=== PATIENT | male | born 1965 | race Caucasian/White ===

== ENCOUNTER 2019-01-17 10:05 | Day surgery (SDC) | payer OTHER ==
[~2019-01-17] VITALS: Ht 167.6 cm; Wt 93.4 kg
[~2019-01-17 10:05] MED LIST: BUPIVACAINE HCL 0.25% 30 ML VIAL As Ordered ONE; BUPIVACAINE LIPOSOME/PF 1.3% 20ML VIAL (13.3MG/ML)(EXPAREL)(C9290 PER1MG) As Ordered ONE; CLAR1TAB13 PO; CYMB60CA3 PO; KETOROLAC 60 MG/2 ML VIAL (J1885) As Ordered ONE; LIDOCAINE 2% INJ 100 MG/5 ML SDV (FOR ANES.) As Ordered ONE; LR 1,000 ML IV ONE; MIDAZOLAM INJ 2 MG/2 ML VIAL (J2250) As Ordered ONE; MODA200T15 PO; MULT1TAB11 PO; NEXI20CA PO; ONDANSETRON 4MG/2ML VIAL (J2405) As Ordered ONE; PEPC1TAB5 PO; PROPOFOL 200 MG/20 ML VIAL As Ordered ONE; ROCURONIUM BROMIDE 50 MG/5 ML VIAL As Ordered ONE; ZYRTTAB8 PO; ceFAZolin SOD 1 GM in D5W MINI-BAG PLUS 50 ML IV ONE; dexameTHASONE 4 MG/ML 1ML VIAL (J1100) As Ordered ONE; fentaNYL 100 MCG/2 ML INJECTION (J3010) As Ordered ONE
[2019-01-17] MEDS ORDERED: BUPIVACAINE HCL 0.25% 30 ML VIAL As Ordered ONE (11:33)
[2019-01-17] MEDS ORDERED: BUPIVACAINE LIPOSOME/PF 1.3% 20ML VIAL (13.3MG/ML)(EXPAREL)(C9290 PER1MG) As Ordered ONE (11:33)
[2019-01-17] MEDS ORDERED: METOCLOPRAMIDE INJ 10MG/2ML VIAL (J2765) As Ordered ONE (11:44)
[2019-01-17] MEDS ORDERED: ePHEDrine SULFATE 25 MG/5 ML(5MG/ML) SYRINGE As Ordered ONE (11:46)
[2019-01-17] MEDS ORDERED: SUGAMMADEX SODIUM 500 MG/5 ML VIAL (BRIDION) As Ordered ONE (11:49)
--- NOTE | 2019-01-17 12:17 | RO ---
DATE OF PROCEDURE: 01/17/2019 PREOPERATIVE DIAGNOSIS: Umbilical hernia. POSTOPERATIVE DIAGNOSIS: Same. PROCEDURE: Umbilical hernia repair with ventral patch. SURGEON: Dr. Noah Rushing. APICULTURIST: ANESTHESIA: General endotracheal anesthesia ESTIMATED BLOOD LOSS: Minimal. FLUIDS: Crystalloid. DESCRIPTION OF PROCEDURE: The patient was brought to the operating room and was given general anesthesia. After adequate anesthesia and preoperative antibiotics were given, the patient was prepped and draped in sterile fashion. Next, a supraumbilical incision was made with skin knife. Electrocautery was used cut through dermis, underlying subcutaneous tissue and the hernia was mobilized circumferentially all the way to the level of the fascia. The hernia was entered and there was a great deal of omentum within this in this was transected at its base after ligating it with Ariana clamps and these were ligated with Vicryl ties. The hernia sac itself was transected at the level of the fascia using electrocautery. Once this was nicely mobilized, the peritoneum was felt circumferentially and revealed a good surface to have a ventral patch. Ventral patch was placed in the peritoneum and taking care to make sure this was abutting the peritoneum circumferentially, the tails of the mesh were sutured both superior and inferiorly with 0 Ethibond. 0 Ethibond was used to close the fascial defect with multiple [id number] and #3-0 Vicryl was used to approximate dermis, #4-0 Vicryl was used to approximate the skin. Steri-Strips and dry sterile dressing was applied. The patient was awakened, extubated, brought to recovery room awake, alert, hemodynamically stable. Sponge and needle counts correct times two.
[2019-01-17] MEDS ORDERED: LR 1,000 ML IV SCH ×2 (12:30)
[2019-01-17] MEDS ORDERED: ONDANSETRON 4MG/2ML VIAL (J2405) IV PRN ×2 (12:30)
[2019-01-17] MEDS ORDERED: NORCO, ANEXSIA 5/325MG TABLET (HYDROcodone/ACETAMINOPHEN) PO PRN (12:30)
[2019-01-17] MEDS ORDERED: PERCOCET 5MG/325MG TAB PO PRN (12:30)
[2019-01-17] MEDS ORDERED: METOCLOPRAMIDE INJ 10MG/2ML VIAL (J2765) IV PRN (12:30)
[2019-01-17] MEDS ORDERED: fentaNYL 100 MCG/2 ML INJECTION (J3010) IV PRN (12:30)
[2019-01-17] MEDS ORDERED: ACETAMINOPHEN 1000MG 100ML IV BTL (OFIRMEV) (J0131 PER 10MG) As Ordered ONE (12:54)
[2019-01-17 13:30] VITALS: BP 134/75
== END 2019-01-17 14:15 | disposition home or self-care (01) ==
LOC: M SDC 10:05
PROVIDERS: ATTEND Surgery
DX: K42.9 Umbilical hernia without obstruction or gangrene (principal); K44.9 Diaphragmatic hernia without obstruction or gangrene; K21.9 Gastro-esophageal reflux disease without esophagitis; F41.9 Anxiety disorder, unspecified; F32.9 Major depressive disorder, single episode, unspecified; Z79.899 Other long term (current) drug therapy
CPT/HCPCS: 49585; 88302; C1781; C9290; J0131; J0690; J1100; J1885; J2250; J2405; J2765; J3010

== ENCOUNTER → 2020-01-16 | Outpatient (CLI) | payer OTHER ==
[~2020-01-16] MED LIST changes: -BUPIVACAINE HCL 0.25% 30 ML VIAL As Ordered ONE; -BUPIVACAINE LIPOSOME/PF 1.3% 20ML VIAL (13.3MG/ML)(EXPAREL)(C9290 PER1MG) As Ordered ONE; -KETOROLAC 60 MG/2 ML VIAL (J1885) As Ordered ONE; -LIDOCAINE 2% INJ 100 MG/5 ML SDV (FOR ANES.) As Ordered ONE; -LR 1,000 ML IV ONE; -MIDAZOLAM INJ 2 MG/2 ML VIAL (J2250) As Ordered ONE; -ONDANSETRON 4MG/2ML VIAL (J2405) As Ordered ONE; -PROPOFOL 200 MG/20 ML VIAL As Ordered ONE; -ROCURONIUM BROMIDE 50 MG/5 ML VIAL As Ordered ONE; -ceFAZolin SOD 1 GM in D5W MINI-BAG PLUS 50 ML IV ONE; -dexameTHASONE 4 MG/ML 1ML VIAL (J1100) As Ordered ONE; -fentaNYL 100 MCG/2 ML INJECTION (J3010) As Ordered ONE
[2020-01-16 09:34] LABS: BASO % 0.5 % (0.0-1.0); EOS # 0.1 10^3/uL (0.0-0.5); EOS % 1.4 % (0.0-3.0); HEMATOCRIT 45.1 % (42.0-52.0); HEMOGLOBIN 14.2 g/dl (13.5-17.5); LYMPH # 1.2 10^3/uL (1.5-5.0); LYMPH % 19.1 % (24.0-44.0); MEAN CORPUSCULAR HEMOGLOBIN 28.5 pg (27.0-33.0); MEAN CORPUSCULAR HGB CONC 31.5 g/dl (32.0-36.5); MEAN CORPUSCULAR VOLUME 90.4 fl (80.0-96.0); MONO # 0.6 10^3/uL (0.0-0.8); MONO % 9.1 % (0.0-5.0); NEUTROPHILS # 4.4 10^3/uL (1.5-8.5); NEUTROPHILS % 69.1 % (36.0-66.0); PLATELET COUNT, AUTOMATED 248 10^3/uL (150-450); RED BLOOD COUNT 4.99 10^6/uL (4.30-6.10); WHITE BLOOD COUNT 6.4 10^3/uL (4.0-10.0)
[2020-01-16 09:56] LABS: ALBUMIN 3.8 GM/DL (3.2-5.2); ALT/SGPT 85 U/L (12-78); BILIRUBIN,TOTAL 0.3 MG/DL (0.2-1.0); BLOOD UREA NITROGEN 17 MG/DL (7-18); CALCIUM LEVEL 9.1 MG/DL (8.5-10.1); CARBON DIOXIDE LEVEL 30 MEQ/L (21-32); CHLORIDE LEVEL 103 MEQ/L (98-107); CREATININE FOR GFR 1.06 MG/DL (0.70-1.30); GLOMERULAR FILTRATION RATE > 60.0 (>56); GLUCOSE, FASTING 79 MG/DL (70-100); LIPASE 108 U/L (73-393); POTASSIUM SERUM 4.5 MEQ/L (3.5-5.1); SODIUM LEVEL 139 MEQ/L (136-145); TOTAL PROTEIN 6.8 GM/DL (6.4-8.2)
== END ==
LOC: M WUC 08:04
PROVIDERS: ATTEND Physician Assistant
DX: F33.40 Major depressive disorder, recurrent, in remission, unspecified (principal)

== ENCOUNTER → 2020-01-24 | Outpatient (CLI) | payer OTHER ==
[2020-01-24 10:27] LABS: ALBUMIN 3.8 GM/DL (3.2-5.2); ALT/SGPT 51 U/L (12-78); BILIRUBIN,TOTAL 0.4 MG/DL (0.2-1.0); BLOOD UREA NITROGEN 17 MG/DL (7-18); CALCIUM LEVEL 8.7 MG/DL (8.5-10.1); CARBON DIOXIDE LEVEL 28 MEQ/L (21-32); CHLORIDE LEVEL 102 MEQ/L (98-107); CREATININE FOR GFR 0.93 MG/DL (0.70-1.30); GLOMERULAR FILTRATION RATE > 60.0 (>56); GLUCOSE, FASTING 86 MG/DL (70-100); POTASSIUM SERUM 4.2 MEQ/L (3.5-5.1); SODIUM LEVEL 138 MEQ/L (136-145)
== END ==
LOC: M WUC 08:16
PROVIDERS: ATTEND Physician Assistant
DX: R10.84 Generalized abdominal pain (principal)

== ENCOUNTER → 2022-01-29 | Outpatient (CLI) | payer OTHER ==
[~2022-01-29] MED LIST changes: -CYMB60CA3 PO; +CYMB60CA4 PO
[2022-01-29 17:34] LABS: BASO % 0.5 % (0.0-1.0); EOS # 0.1 10^3/uL (0.0-0.5); EOS % 1.3 % (0.0-3.0); HEMATOCRIT 43.2 % (42.0-52.0); LYMPH # 1.8 10^3/uL (1.5-5.0); LYMPH % 23.9 % (24.0-44.0); MEAN CORPUSCULAR HEMOGLOBIN 28.5 pg (27.0-33.0); MEAN CORPUSCULAR HGB CONC 32.4 g/dl (32.0-36.5); MONO # 0.8 10^3/uL (0.0-0.8); MONO % 10.3 % (2.0-8.0); NEUTROPHILS # 4.7 10^3/uL (1.5-8.5); NEUTROPHILS % 63.3 % (36.0-66.0); PLATELET COUNT, AUTOMATED 253 10^3/uL (150-450); RED BLOOD COUNT 4.91 10^6/uL (4.30-6.10); WHITE BLOOD COUNT 7.5 10^3/uL (4.0-10.0)
[2022-01-29 17:41] LABS: ALBUMIN 3.8 GM/DL (3.2-5.2); ALT/SGPT 69 U/L (12-78); BILIRUBIN,TOTAL 0.2 MG/DL (0.2-1.0); BLOOD UREA NITROGEN 13 MG/DL (7-18); CALCIUM LEVEL 8.7 MG/DL (8.5-10.1); CARBON DIOXIDE LEVEL 32 MEQ/L (21-32); CHLORIDE LEVEL 103 MEQ/L (98-107); GLOMERULAR FILTRATION RATE > 60.0 (>56); GLUCOSE, FASTING 80 MG/DL (70-100); POTASSIUM SERUM 3.6 MEQ/L (3.5-5.1); SODIUM LEVEL 138 MEQ/L (136-145); TOTAL PROTEIN 7.1 GM/DL (6.4-8.2)
== END ==
LOC: M WUC 15:36
PROVIDERS: ATTEND Physician Assistant
DX: R05.9 Cough, unspecified (principal); R07.1 Chest pain on breathing

== ENCOUNTER 2023-04-01 08:45 | Day surgery (SDC) | payer OTHER ==
[~2023-04-01] VITALS: Ht 167.6 cm; Wt 94.3 kg
[2023-04-01] MEDS ORDERED: fentaNYL 100 MCG/2 ML INJECTION As Ordered ONE (10:07)
[2023-04-01] MEDS ORDERED: LIDOCAINE 2% 100MG/5ML SDV (FOR ANES.) As Ordered ONE (10:08)
[2023-04-01] MEDS ORDERED: propofoL 200 MG/20 ML VIAL As Ordered ONE ×2 (10:09→10:32)
[2023-04-01 10:48] VITALS: TEMP 97.7
[2023-04-01 11:05] VITALS: BP 117/75; O2SAT 99
== END 2023-04-01 11:15 | disposition home or self-care (01) ==
LOC: M OPP 08:45
PROVIDERS: ATTEND Surgery
DX: Z12.11 Encounter for screening for malignant neoplasm of colon (principal); Z86.010 Personal history of colon polyps; D12.6 Benign neoplasm of colon, unspecified; K29.70 Gastritis, unspecified, without bleeding; K44.9 Diaphragmatic hernia without obstruction or gangrene; Z79.899 Other long term (current) drug therapy
CPT/HCPCS: 43239; 45380; 45385; 88305; J3010

== ENCOUNTER → 2023-07-13 | Outpatient (CLI) | payer OTHER | LOC: M WUC 11:53 | PROVIDERS: ATTEND Family Medicine | DX: M25.569 Pain in unspecified knee (principal) ==

== ENCOUNTER → 2023-10-18 | Outpatient (CLI) | payer OTHER | LOC: M PLAIMG 06:42 | PROVIDERS: ATTEND Family Medicine | DX: M23.90 Unspecified internal derangement of unspecified knee (principal) ==

== ENCOUNTER → 2025-04-13 | Outpatient (CLI) | payer OTHER ==
[2025-04-13 12:53] LABS: BASO # 0.1 10^3/uL (0.0-0.2); BASO % 0.8 % (0.0-1.0); EOS # 0.1 10^3/uL (0.0-0.5); EOS % 1.5 % (0.0-3.0); LYMPH # 1.6 10^3/uL (1.5-5.0); LYMPH % 25.0 % (24.0-44.0); MONO # 0.5 10^3/uL (0.0-0.8); MONO % 7.4 % (2.0-8.0); NEUTROPHILS # 4.2 10^3/uL (1.5-8.5); NEUTROPHILS % 64.5 % (36.0-66.0); PLATELET COUNT, AUTOMATED 269 10^3/uL (150-450)
[2025-04-13 12:57] LABS: PROSTATIC SPECIFIC AG MONITOR 1.38 NG/ML (< 4.00)
[2025-04-13 13:00] LABS: ALT/SGPT 27.0 U/L (7.0-40); AST/SGOT 22.0 U/L (<34); CALCIUM LEVEL 9.1 MG/DL (8.5-10.1); CARBON DIOXIDE LEVEL 29.0 MMOL/L (20-31); CHLORIDE LEVEL 105.0 MMOL/L (98-107); CHOLESTEROL LEVEL 189.0 MG/DL (<200); CHOLESTEROL RISK RATIO 2.95 (<5); CREATININE FOR GFR 1.02 MG/DL (0.70-1.30); GLOMERULAR FILTRATION RATE 85.2 (>56); LDL CHOLESTEROL 113.3 MG/DL (<100); NON-HDL-C 125.1 MG/DL; POTASSIUM SERUM 4.4 MMOL/L (3.5-5.1); SODIUM LEVEL 143.0 MMOL/L (136-145); TRIGLYCERIDES LEVEL 59.0 MG/DL (<150)
== END ==
LOC: M WUC 08:22
PROVIDERS: ATTEND Family Medicine
DX: Z00.00 Encounter for general adult medical examination without abnormal findings (principal); Z12.5 Encounter for screening for malignant neoplasm of prostate; R07.9 Chest pain, unspecified